=== PATIENT | male | born 1975 | race Caucasian/White ===

== ENCOUNTER 2016-04-21 13:47 | Emergency (ER) | payer BC ==
[2016-04-21 14:36] VITALS: BP 133/84
--- NOTE | 2016-04-21 14:51 | UC ---
UC General HPI - HPI Summary HPI Summary: patient has had myalgia, sinus pressure, cough sore throat, headache, chills and hot flashes for about 5 days. - History of Current Complaint Chief Complaint: UCRespiratory Stated Complaint: flu like sxs Time Seen by Provider: 04/21/16 14:29 Hx Obtained From: Patient Onset/Duration: Gradual Onset, Lasting Days Timing: Constant Onset Severity: Moderate Current Severity: Severe Pain Intensity: 8 Pain Location at: head and body aches Associated Signs & Symptoms: Positive: Cough, Headache, Wheezing - Allergy/Home Medications Allergies/Adverse Reactions: Allergies Allergy/AdvReac Type Severity Reaction Status Date / Time No Known Allergies Allergy Verified 04/21/16 14:37 Home Medications: Home Medications Yxmodbanqphen-[id number]-Wblzo [Vicks Dayquil/Nyquil Cold] 1 dose PO ONCE [History Confirmed 04/21/16] PMH/Surg Hx/FS Hx/Imm Hx Previously Healthy: Yes Endocrine History Of: Denies: Diabetes, Thyroid Disease Cardiovascular History Of: Denies: Cardiac Disorders, Hypertension Respiratory History Of: Denies: COPD, Asthma GI/ History Of: Denies: Ulcer - Surgical History Surgical History: Yes Surgery Procedure, Year, and Place: TONSILLECTOMY. Hand surgery staph infection 06/2015. appendectomy - Family History Known Family History: Negative: Cardiac Disease, Hypertension - Social History Alcohol Use: Weekly Alcohol Amount: weekends Substance Use Type: None Smoking Status (MU): Former Smoker Type: Cigarettes - Immunization History Most Recent Influenza Vaccination: none Review of Systems Constitutional: Fever, Chills, Fatigue Skin: Negative Eyes: Negative ENT: Sore Throat, Ear Ache, Nasal Discharge Respiratory: Shortness Of Breath, Cough Cardiovascular: Negative Gastrointestinal: Negative Genitourinary: Negative Motor: Negative Neurovascular: Negative Musculoskeletal: Myalgia Neurological: Headache Psychological: Negative All Other Systems Reviewed And Are Negative: Yes Physical Exam Triage Information Reviewed: Yes Appearance: Well-Nourished, Ill-Appearing, Pain Distress Vital Signs: Initial Vital Signs Temp 98.0 F 04/21/16 14:29 Pulse 83 04/21/16 14:29 Resp 16 04/21/16 14:29 BP 133/84 04/21/16 14:29 Pulse Ox 98 04/21/16 14:29 Vital Signs Reviewed: Yes Eye Exam: Normal Eyes: Positive: Conjunctiva Inflamed ENT: Positive: Pharyngeal erythema, Nasal congestion, Nasal drainage, TM red, Tonsillar swelling, Muffled/hoarse voice Dental Exam: Normal Neck exam: Normal Neck: Positive: Supple, Nontender, No Lymphadenopathy Respiratory Exam: Normal Respiratory: Positive: Chest non-tender, Lungs clear, Normal breath sounds Cardiovascular Exam: Normal Cardiovascular: Positive: RRR, No Murmur, Pulses Normal Abdominal Exam: Normal Abdomen Description: Positive: Nontender, No Organomegaly, Soft Bowel Sounds: Positive: Present Musculoskeletal Exam: Normal Musculoskeletal: Positive: Strength Intact, ROM Intact Neurological Exam: Normal Psychological Exam: Normal Skin Exam: Normal Course/Dx - Course Course Of Treatment: hx obtained, exam performed, flu swab obtained, positive for Influenza A. refused ibuprofen. educaetd on symptom managment. medications prescribed. - Differential Dx - Multi-Symptom Provider Diagnoses: influenza A. cough. body aches Discharge - Discharge Plan Condition: Stable Disposition: HOME Patient Education Materials: Influenza (ED) Additional Instructions: Get plenty of rest, drink plenty of fluid. Take medication as prescribed. You are contagious, stay away from immune compromised patients.
== END 2016-04-21 15:28 | disposition home or self-care (01) ==
LOC: UCCORT 13:47
DX: J09.X2 Influenza due to identified novel influenza A virus with other respiratory manifestations (principal); R05 Cough; M79.1 Myalgia; Z87.891 Personal history of nicotine dependence
CPT/HCPCS: 87502; 99212; G0463

== ENCOUNTER 2017-09-12 20:45 | Emergency (ER) | payer BC ==
--- NOTE | 2017-09-12 20:46 | UC ---
Throat Pain/Nasal Oswald HPI - HPI Summary HPI Summary: 42 yo male presents with fever, chills, body aches, and fatigue for the last 2 days. He was away for a wedding and had to stay in the hotel room due to feeling unwell. Has not taken anything OTC. Says he feels the same as he did last year when he had the flu. Denies cough, SOB, chest pain, abdominal pain, n/ v. - History of Current Complaint Stated Complaint: FLU SXS Time Seen by Provider: 09/12/17 20:46 Hx Obtained From: Patient Onset/Duration: Sudden Onset Severity: Moderate Pain Intensity: 6 Pain Scale Used: 0-10 Numeric - Allergies/Home Medications Allergies/Adverse Reactions: Allergies Allergy/AdvReac Type Severity Reaction Status Date / Time No Known Allergies Allergy Verified 04/21/16 14:37 Home Medications: Home Medications NK [No Home Medications Reported] 09/12/17 [History Confirmed 09/12/17] PMH/Surg Hx/FS Hx/Imm Hx Previously Healthy: Yes Respiratory History: Asthma - Surgical History Surgical History: Yes Surgery Procedure, Year, and Place: TONSILLECTOMY. Hand surgery staph infection 06/2015. appendectomy - Family History Known Family History: Negative: Cardiac Disease, Hypertension - Social History Occupation: Employed Full-time Lives: With Family Alcohol Use: Weekly Alcohol Amount: weekends Substance Use Type: None Smoking Status (MU): Former Smoker Type: Cigarettes - Immunization History Most Recent Influenza Vaccination: none Review of Systems Constitutional: Fever, Fatigue, Other - Body aches Skin: Negative Eyes: Negative ENT: Negative Respiratory: Negative Cardiovascular: Negative Gastrointestinal: Negative Neurovascular: Negative Neurological: Negative Psychological: Negative All Other Systems Reviewed And Are Negative: Yes Physical Exam - Summary Physical Exam Summary: GENERAL: NAD. Obese. WDWN. SKIN: No rashes, sores, lesions, or open wounds. HEENT: Head: AT/NC Eyes: EOM intact. Conjunctiva clear without inflammation or discharge. Ears: Hearing grossly normal. TMs intact, no bulging, erythema, or edema. Nose: Nasal mucosa pink and moist. NTTP maxillary and frontal sinus. Throat: Posterior oropharynx without exudates, erythema, or tonsillar enlargement. Uvula midline. NECK: Supple. Nontender. No lymphadenopathy. CHEST: CTAB. No r/r/w. No accessory muscle use. Breathing comfortably and in no distress. CV: RRR. Without m/r/g. Pulses intact. Brisk cap refill. NEURO: Alert. CN II-XII grossly intact. PSYCH: Age appropriate behavior. Triage Information Reviewed: Yes Vital Signs: Vital Signs: Temp Pulse Resp BP Pulse Ox 99.6 F 85 20 137/92 100 09/12/17 21:04 09/12/17 21:04 09/12/17 21:04 09/12/17 21:04 09/12/17 21:04 Throat Pain/Nasal Course/Dx - Course Course Of Treatment: Suspect influenza or viral illness. Advised to drink plenty of fluids and take tylenol alternating with ibuprofen. F/u if symptoms worsen. - Differential Dx/Diagnosis Provider Diagnoses: Viral illness Discharge - Sign-Out/Discharge Documenting (check all that apply): Discharge/Admit/Transfer - Discharge Plan Condition: Stable Disposition: HOME Patient Education Materials: Viral Syndrome (ED) Referrals: Pradip Marie MD [Primary Care Provider] - Additional Instructions: If you develop a fever, shortness of breath, chest pain, new or worsening symptoms - please call your PCP or go to the ED. Your blood pressure was high at todays visit. Please see your primary provider within 4 weeks for recheck and re-evaluation. - Billing Disposition and Condition Condition: STABLE Disposition: HOME
[2017-09-12 21:12] VITALS: BP 137/92
== END 2017-09-12 21:24 | disposition home or self-care (01) ==
LOC: UCCORT 20:45
DX: B34.9 Viral infection, unspecified (principal); Z87.891 Personal history of nicotine dependence
CPT/HCPCS: 99211; G0463

== ENCOUNTER 2017-12-28 13:07 | Emergency (ER) | payer BC ==
[2017-12-28 13:42] VITALS: BP 136/88
--- NOTE | 2017-12-28 14:18 | UC ---
Abdominal Pain Male HPI - HPI Summary HPI Summary: abdominal pain x 2 hrs + nausea , had chijustai dog for lunch , sever abdominal discomfort and nausea about 20 after the food no vomiting, no diarrhea, no fever, + chills - History of Current Complaint Chief Complaint: UCGI Stated Complaint: NAUSEA/VOMITING Time Seen by Provider: 12/28/17 14:06 Hx Obtained From: Patient Onset/Duration: Sudden Onset, Lasting Hours - 2, Still Present Timing: Constant Severity Initially: Severe Severity Currently: Moderate Pain Intensity: 6 Location: Epigastric Radiates: No Character: Cramping Aggravating Factor(s): Food Alleviating Factor(s): Nothing Associated Signs And Symptoms: Positive: Nausea. Negative: Diaphoresis, Fever, Cough, Chest Pain, Dizzy, Back Pain, Constipation, Blood in Stool, Urinary Symptoms, Decreased Appetite, Vomiting, Diarrhea - Allergies/Home Medications Allergies/Adverse Reactions: Allergies Allergy/AdvReac Type Severity Reaction Status Date / Time No Known Allergies Allergy Verified 04/21/16 14:37 PMH/Surg Hx/FS Hx/Imm Hx Previously Healthy: Yes - Surgical History Surgical History: Yes Surgery Procedure, Year, and Place: TONSILLECTOMY. Hand surgery staph infection 06/2015. appendectomy - Family History Known Family History: Negative: Cardiac Disease, Hypertension - Social History Alcohol Use: Weekly Alcohol Amount: weekends Substance Use Type: None Smoking Status (MU): Light Every Day Tobacco Smoker Type: Cigarettes Amount Used/How Often: 1/2 PPD Household Exposure Type: Cigarettes - Immunization History Most Recent Influenza Vaccination: none Review of Systems Constitutional: Negative Skin: Negative Eyes: Negative ENT: Negative Respiratory: Negative Cardiovascular: Negative Gastrointestinal: Abdominal Pain, Nausea Is Patient Immunocompromised?: No All Other Systems Reviewed And Are Negative: Yes Physical Exam Triage Information Reviewed: Yes Appearance: Well-Nourished, Pain Distress Vital Signs: Initial Vital Signs Temp 98.2 F 12/28/17 13:34 Pulse 68 12/28/17 13:34 Resp 14 12/28/17 13:34 BP 136/88 12/28/17 13:34 Pulse Ox 99 12/28/17 13:34 Vital Signs Reviewed: Yes Eyes: Positive: Conjunctiva Clear ENT: Positive: Normal ENT inspection, Hearing grossly normal, Pharynx normal Neck: Positive: Supple, Nontender, No Lymphadenopathy Respiratory: Positive: Chest non-tender, Lungs clear, Normal breath sounds Cardiovascular: Positive: RRR, No Murmur, Pulses Normal Abdomen Description: Positive: No Organomegaly, Soft, Other: - mild epigastric tenderness. Negative: CVA Tenderness (R), CVA Tenderness (L), Distended, Guarding Bowel Sounds: Positive: Present Musculoskeletal Exam: Normal Musculoskeletal: Positive: Strength Intact, ROM Intact Neurological: Positive: Alert Abd Pain Male Course/Dx - Differential Dx/Clinical Impression Provider Diagnoses: gastritis. food poisoning Discharge - Sign-Out/Discharge Documenting (check all that apply): Patient Departure All imaging exams completed and their final reports reviewed: No Studies - Discharge Plan Condition: Stable Disposition: HOME Patient Education Materials: Food Poisoning (ED) Forms: *Work Release Referrals: Pradip Marie MD [Primary Care Provider] - If Needed Additional Instructions: rest, fluid, Tylenol as needed for pain go to ED if increase in abdominal pain and getting worse - Billing Disposition and Condition Condition: STABLE Disposition: Home
== END 2017-12-28 14:29 | disposition home or self-care (01) ==
LOC: UCCORT 13:07
DX: K29.70 Gastritis, unspecified, without bleeding (principal); T62.91XA Toxic effect of unspecified noxious substance eaten as food, accidental (unintentional), initial encounter; Y92.9 Unspecified place or not applicable; F17.210 Nicotine dependence, cigarettes, uncomplicated
CPT/HCPCS: 99211; G0463

== ENCOUNTER 2018-12-26 10:31 | Emergency (ER) | payer BC ==
[2018-12-26 10:51] VITALS: BP 118/82
[2018-12-26] MEDS ORDERED: Dexamethasone IV* 4 MG/ML 1 ML (4 MG) PO ONE (11:10)
--- NOTE | 2018-12-26 11:19 | ED ---
Skin Complaint - HPI Summary HPI Summary: 43 yr old male with the complaint of stung on left shoulder yesterday by bee or wasp, and he has some swelling more distally now on medial side of arm and down to the elbow. The pain is moderate. No fever or chills. He has not felt ill in any way. - History of Current Complaint Chief Complaint: UCSkin Time Seen by Provider: 12/26/18 10:45 Stated Complaint: SKIN COMPLAINT Pain Intensity: 1 - Allergy/Home Medications Allergies/Adverse Reactions: Allergies Allergy/AdvReac Type Severity Reaction Status Date / Time No Known Allergies Allergy Verified 12/26/18 10:51 PMH/Surg Hx/FS Hx/Imm Hx Endocrine/Hematology History: Denies: Hx Diabetes, Hx Thyroid Disease Cardiovascular History: Denies: Hx Hypertension Respiratory History: Denies: Hx Asthma, Hx Chronic Obstructive Pulmonary Disease (COPD) GI History: Denies: Hx Ulcer - Surgical History Surgery Procedure, Year, and Place: TONSILLECTOMY. Hand surgery staph infection 06/2015. appendectomy. staph upper left leg 6 yrs ago Infectious Disease History: No Infectious Disease History: Denies: Hx Clostridium Difficile, Hx Hepatitis, Hx Human Immunodeficiency Virus (HIV), Hx of Known/Suspected MRSA, Hx Shingles, Hx Tuberculosis, Hx Known/ Suspected VRE, Hx Known/Suspected VRSA, History Other Infectious Disease, Traveled Outside the [place] in Last 30 Days - Family History Known Family History: Positive: None Negative: Cardiac Disease, Hypertension - Social History Occupation: Employed Full-time Alcohol Use: Weekly Alcohol Amount: weekends Substance Use Type: Reports: None Smoking Status (MU): Former Smoker Type: Cigarettes Amount Used/How Often: 1/2 PPD Review of Systems Constitutional: Negative Positive: Other - allergic reaction sting on left arm. All Other Systems Reviewed And Are Negative: Yes Physical Exam Triage Information Reviewed: Yes Vital Signs On Initial Exam: Initial Vitals Temp Pulse Resp BP Pulse Ox 98.2 F 81 18 118/82 97 12/26/18 10:44 12/26/18 10:44 12/26/18 10:44 12/26/18 10:44 12/26/18 10:44 Vital Signs Reviewed: Yes Appearance: Positive: Well-Appearing, No Pain Distress Skin: Positive: Warm, Skin Color Reflects Adequate Perfusion, Other - there is a localized allergic reaction on the left upper medial arm from the posterior shoulder and down the medial arm to the elbow area. No cellulitis. There is some increased warmth. Head/Face: Positive: Normal Head/Face Inspection Eyes: Positive: EOMI ENT: Positive: Normal ENT inspection Neck: Positive: Nontender Respiratory/Lung Sounds: Positive: Clear to Auscultation, Breath Sounds Present Cardiovascular: Positive: RRR. Negative: Murmur Abdomen Description: Negative: Distended Musculoskeletal: Positive: Strength/ROM Intact Neurological: Positive: Sensory/Motor Intact, Alert, Oriented to Person Place, Time, CN Intact II-III Psychiatric: Positive: Normal Diagnostics - Vital Signs Vital Signs Temp Pulse Resp BP Pulse Ox 12/26/18 10:44 98.2 F 81 18 118/82 97 - Laboratory Lab Statement: Any lab studies that have been ordered have been reviewed, and results considered in the medical decision making process. Course/Dx - Course Course Of Treatment: 43 yr old with allergic reaction. Medrol dose dorcas. 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 - Billing Disposition and Condition Condition: GOOD Disposition: Home
== END 2018-12-26 11:22 | disposition home or self-care (01) ==
LOC: UCCORT 10:31
DX: T63.441A Toxic effect of venom of bees, accidental (unintentional), initial encounter (principal); M79.89 Other specified soft tissue disorders; Z87.891 Personal history of nicotine dependence
CPT/HCPCS: 99212; G0463; J1100

== ENCOUNTER 2019-06-27 09:24 | Emergency (ER) | payer BC ==
[2019-06-27 09:53] VITALS: BP 123/83
--- NOTE | 2019-06-27 10:50 | UC ---
Lower Extremity/Ankle HPI - HPI Summary HPI Summary: right ankle pain x 2 days pain is severe , 8 out of 10 , worse with waling, better with rest, ice, elevation no known injury , started as mild / moderate, became severe the next day cannot bear weight no fever, no chills - History of Current Complaint Chief Complaint: UCLowerExtremity Stated Complaint: RIGHT ANKLE INJURY Time Seen by Provider: 06/27/19 09:59 Hx Obtained From: Patient Onset/Duration: Gradual Onset, Lasting Days - 2, Still Present Severity Initially: Moderate Severity Currently: Severe Pain Intensity: 4 Aggravating Factor(s): Standing, Ambulation Alleviating Factor(s): Rest, Elevation, Ice Able to Bear Weight: No - Allergies/Home Medications Allergies/Adverse Reactions: Allergies Allergy/AdvReac Type Severity Reaction Status Date / Time No Known Allergies Allergy Verified 06/27/19 09:48 Home Medications: Home Medications Ibuprofen TAB* [Advil TAB*] 800 mg PO Q8H PRN 06/27/19 [History Confirmed ] Indomethacin CAP* [Indocin CAP*] 50 mg PO TID PRN #15 cap 06/27/19 [Rx] PMH/Surg Hx/FS Hx/Imm Hx Previously Healthy: Yes - Surgical History Surgical History: Yes Surgery Procedure, Year, and Place: TONSILLECTOMY. Hand surgery staph infection 06/2015. appendectomy. staph upper left leg 6 yrs ago - Family History Known Family History: Positive: None, Other - father has gout Negative: Cardiac Disease, Hypertension, Diabetes - Social History Alcohol Use: Weekly Alcohol Amount: weekends Substance Use Type: None Smoking Status (MU): Current Some Day Smoker Type: Smokeless Tobacco Amount Used/How Often: 1/2 PPD When Did the Patient Quit Smoking/Using Tobacco: 6 months ago Household Exposure Type: Cigarettes - Immunization History Most Recent Influenza Vaccination: none Review of Systems All Other Systems Reviewed And Are Negative: Yes Is Patient Immunocompromised?: No Physical Exam Triage Information Reviewed: Yes Appearance: Pain Distress, Obese Vital Signs: Initial Vital Signs Temp 98.3 F 06/27/19 09:43 Pulse 70 06/27/19 09:43 Resp 16 06/27/19 09:43 BP 123/83 06/27/19 09:43 Pulse Ox 99 06/27/19 09:43 Vital Signs Reviewed: Yes Eye Exam: Normal ENT: Positive: Normal ENT inspection, Hearing grossly normal Neck: Positive: Supple, Nontender, No Lymphadenopathy Respiratory: Positive: Chest non-tender, Lungs clear, Normal breath sounds Cardiovascular: Positive: RRR, No Murmur, Pulses Normal Musculoskeletal: Positive: Other: - right ankle : mild swelling, warm to touch, no erythema, diffuse severe tenderness Diagnostics - Radiology No standard instances Radiology Interpretation Completed By: Radiologist Summary of Radiographic Findings: xray report right ankle : IMPRESSION: SOFT TISSUE SWELLING. NO ACUTE OSSEOUS INJURY. IF SYMPTOMS PERSIST, RECOMMEND REPEAT IMAGING. Lower Extremity Course/Dx - Differential Dx/Diagnosis Provider Diagnosis: Gout Discharge ED - Sign-Out/Discharge Documenting (check all that apply): Patient Departure All imaging exams completed and their final reports reviewed: Yes - Discharge Plan Condition: Stable Disposition: HOME Prescriptions: Indomethacin CAP* [Indocin CAP*] 50 mg PO TID PRN #15 cap PRN Reason: Pain - Moderate Patient Education Materials: Gout (ED) Referrals: Martínez Marques MD [Primary Care Provider] - 7 Days - Billing Disposition and Condition Condition: STABLE Disposition: Home
== END 2019-06-27 10:48 | disposition home or self-care (01) ==
LOC: UCCORT 09:24
DX: M10.9 Gout, unspecified (principal); M79.89 Other specified soft tissue disorders; F17.290 Nicotine dependence, other tobacco product, uncomplicated
CPT/HCPCS: 99212; G0463